=== PATIENT | female | born 1995 | race African-American/Black ===

== ENCOUNTER 2017-10-20 19:08 | Emergency (ER) | payer SELFPAY ==
[2017-10-20] MEDS ORDERED: POLYMYXIN B SULFATE/TMP OPH SOLN (10 ML/ER DISP) OD PRN (19:51)
[2017-10-20] MEDS ORDERED: ALBUTEROL SULFATE 0.083% NEB 2.5 MG/3 ML AMPUL NEB ONE (19:51)
--- NOTE | 2017-10-20 19:52 | ER Document Report ---
HPI - HPI Patient complains to provider of: Cough Pain Level: 5 Context: Patient is a 22-year-old female presents emergency department complaining of nonproductive cough, rhinorrhea for 1 week. She denies any productive cough, fever, chills, shortness of breath, dyspnea on exertion. States that she has been taking DayQuil, NyQuil, Cepacol without any improvement. With associated sore throat due to frequent coughing. She also admits to right eye discharge and redness that started this morning. She denies wearing contact lenses. She did not receive a flu vaccine this year. Patient is a non-smoker and denies any history of lung disease - REPRODUCTIVE LMP: 10/19/17 Reproductive: DENIES: : Past Medical History - Social History Smoking Status: Never Smoker Family History: Reviewed & Not Pertinent Psychiatric Medical History: Reports: Hx Depression Past Surgical History: Reports: Hx Appendectomy - Immunizations Hx Diphtheria, Pertussis, Tetanus Vaccination: Yes Vertical Provider Document - CONSTITUTIONAL Agree With Documented VS: Yes Notes: PHYSICAL EXAM GENERAL: Alert, interacts well. HEAD: Normocephalic, atraumatic. EYES: Pupils equal, round, and reactive to light. Extraocular movements intact. Conjunctival erythema with purulent drainage noted within the right eye without any periorbital edema ENT: Oral mucosa moist, tongue midline. NECK: Full range of motion. Supple. Trachea midline. LUNGS: Clear to auscultation bilaterally, no wheezes, rales, or rhonchi. No respiratory distress. HEART: Regular rate and rhythm. No murmurs, gallops, or rubs. EXTREMITIES: Moves all 4 extremities spontaneously. No edema, radial and dorsalis pedis pulses 2/4 bilaterally. No cyanosis. NEUROLOGICAL: Alert and oriented x4. Normal speech. PSYCH: Normal affect, normal mood. SKIN: Warm, dry, normal turgor. No rashes or lesions noted. - INFECTION CONTROL TRAVEL OUTSIDE OF THE [place] IN LAST 30 DAYS: No - RESPIRATORY O2 Sat by Pulse Oximetry: 98 Course - Re-evaluation Re-evalutation: 10/21/17 01:23 Patient is a 22-year-old female who is hemodynamically stable, no acute distress and afebrile. Presentation is consistent with viral bronchitis without wheezing. Patient states that she felt better after nebulizer treatment. Chest x-ray without evidence of infiltrate or concern for pneumonia. Low clinical suspicion for any acute sinusitis, strep pharyngitis, retropharyngeal or peritonsillar abscess. Patient tolerating p.o. without any difficulty. And vital signs are stable. Regarding her eye, consistent with a bacterial conjunctivitis. Will discharge home on topical Polytrim with instruction to follow-up with primary care. Patient will be also discharged home on p.o. steroids for bronchitis. Patient given strict return precautions and stable for discharge - Vital Signs Vital signs: Temp Pulse Resp BP Pulse Ox 98.8 F 82 20 151/78 H 98 10/20/17 19:13 10/20/17 19:13 10/20/17 19:13 10/20/17 19:13 10/20/17 19:13 - Diagnostic Test Radiology reviewed: Image reviewed, Reports reviewed Discharge - Discharge Clinical Impression: Bronchitis, Pre-hypertension Conjunctivitis Qualifiers: Conjunctivitis type: acute Acute conjunctivitis type: bacterial Laterality: right Qualified Code(s): H10.31 - Unspecified acute conjunctivitis, right eye Condition: Good Disposition: HOME, SELF-CARE Instructions: Conjunctivitis ([facility]) Additional Instructions: BRONCHITIS: You have acute bronchitis. This disease is an infection or inflammation of the air passageways in your lungs. Symptoms usually include cough, low grade fever, shortness of breath, and wheezing. The cough usually persists for a couple of weeks. Most cases of bronchitis get better without antibiotics. We prescribe antibiotics when we believe bacteria are damaging your airways, or if there's high risk the bronchitis will worsen into pneumonia. Increase your fluid intake. A cool mist humidifier may make your lungs more comfortable. An expectorant (cough medicine that loosens phlegm) can help. If you smoke, STOP!!! Recovery from bronchitis can be somewhat slow, but you should see improvement within a day or two. Repeated episodes of bronchitis may result in lung damage -- for example, chronic bronchitis, recurrent pneumonias, or emphysema. Call the doctor if you develop increasing fever, shortness of breath, chest pain, bloody sputum, or otherwise worsen. If you have not improved at all after several days, contact the physician. DECONGESTANT MEDICATION: A decongestant medicine has been prescribed. Often this medicine is combined in the same tablet with an antihistamine or expectorant. This type of medicine is helpful in treating a bad cold or sinus condition, as well as in treatment of the nasal congestion of hay fever. It is not of much benefit for lung infections. Decongestant medicines are related to stimulants. They can cause an increase in blood pressure and heart rate. Persons with heart disease and high blood pressure should not take decongestants without discussing this with the physician. If you develop palpitations, chest pain, headache, or tremors, stop the medicine and consult your physician. COUGH-SUPPRESSANT & EXPECTORANT MEDICATION: You are to use a cough medication as needed for relief of symptoms. This medicine is a combination of an expectorant (to make the mucous thinner and more easily "coughed up") and a cough suppressant (to reduce the frequency of coughing). The cough-suppressant medicine is related to narcotics. You may experience mild nausea and sleepiness. Some patients who are very sensitive to narcotics may have stomach pain from this medicine. Taking the medicine with food reduces these side effects. Do not drive or work with machinery until you know how this medicine affects you. The expectorant should have no side effects. Iodine-containing expectorants (such as organidin) should not be taken by persons with active thyroid disease unless approved by your doctor. Call the doctor if you develop shortness of breath, hives, rash, itching, lightheadedness, or severe nausea and vomiting. INHALED BRONCHODILATORS: You have received a treatment of and/or prescription for an inhaled bronchodilator -- a medication which stimulates the airways in the lung to dilate. This improves the flow of air in asthma, bronchitis, and emphysema. These medicines have some similarity to adrenaline, and can cause similar side effects: shakiness, racing heart, and a sense of nervousness. These side effects decrease with time. Contact your doctor if these side effects are severe. Do not over-use the medicine. Too-frequent use of the inhaler may make it ineffective. Call your doctor if the inhaler is not controlling your symptoms at the prescribed doses. STEROID MEDICATION: You have been given an injection of or oral medicine of the cortisone/ steroid class. This medication is used to control inflammation or allergy. Jaspreet t is usually only given for a short period of time, until the acute process subsides. There are usually no side effects from short-term use of cortisone-like medications. Some persons feel an increased sense of well-being and are not sleepy at bedtime. Long-term use of cortisone medications is best avoided, unless required for a severe condition. If your condition does not remit, or relapses after the course of corticosteroid medication, you should consult your physician. USE OF ACETAMINOPHEN (Tylenol): Acetaminophen may be taken for pain relief or fever control. It's much safer than aspirin, offering a wider range of "safe" dosages. It is safe during . Some brand names are Tylenol, Panadol, Datril, Anacin 3, Tempra, and Liquiprin. Acetaminophen can be repeated every four hours. The following are maximum recommended dosages: >89 pounds or adults 650 mg to 900 mg Acetaminophen can be repeated every four hours. Maximum dose not to exceed 4000 mg a day. FOLLOW-UP CARE: If you have been referred to a physician for follow-up care, call the physician s office for an appointment as you were instructed or within the next two days. If you experience worsening or a significant change in your symptoms, notify the physician immediately or return to the Emergency Department at any time for re-evaluation. Prescriptions: Benzonatate [Tessalon Perles 100 mg Capsule] 100 mg PO Q8HP PRN #40 capsule PRN Reason: Albuterol Sulfate [Proair HFA Inhalation Aerosol 8.5 gm MDI] 1 puff IH Q4 PRN # 1 mdi PRN Reason: Prednisone [Sterapred] 5 mg PO ASDIR PRN 6 Days #1 tab.ds.pk PRN Reason: Forms: Elevated Blood Pressure, Return to Work Referrals: [facility] [Provider Group] - Follow up in 1 week
[2017-10-20] MEDS ORDERED: PREDNISONE 20 MG TABLET PO ONE (20:01)
--- NOTE | 2017-10-20 20:46 | RADIOLOGY REPORT (SQ) ---
EXAM DESCRIPTION: CHEST PA/LAT COMPLETED DATE/TIME: 10/20/2017 8:29 pm REASON FOR STUDY: nonproductive cough COMPARISON: None. EXAM PARAMETERS: NUMBER OF VIEWS: two views TECHNIQUE: Digital Frontal and Lateral radiographic views of the chest acquired. RADIATION DOSE: NA LIMITATIONS: none FINDINGS: LUNGS AND PLEURA: No opacities, masses or pneumothorax. No pleural effusion. MEDIASTINUM AND HILAR STRUCTURES: No masses or contour abnormalities. HEART AND VASCULAR STRUCTURES: Heart normal size. No evidence for failure. BONES: No acute findings. HARDWARE: None in the chest. OTHER: No other significant finding. IMPRESSION: NO SIGNIFICANT RADIOGRAPHIC FINDING IN THE CHEST. TECHNICAL DOCUMENTATION: JOB ID: [id number] [employer]- All Rights Reserved Reading location - IP/workstation name: [email or web address]
[2017-10-20] MEDS ORDERED: BENZONATATE 100 MG CAPSULE PO ONE (21:07)
[2017-10-20 21:35] VITALS: BP 126/57
== END 2017-10-20 21:35 | disposition home or self-care (01) ==
LOC: ER 19:08
DX: J40 Bronchitis, not specified as acute or chronic (principal); H10.31 Unspecified acute conjunctivitis, right eye; R05 Cough; J34.89 Other specified disorders of nose and nasal sinuses; J02.9 Acute pharyngitis, unspecified; R03.0 Elevated blood-pressure reading, without diagnosis of hypertension
CPT/HCPCS: 94640; 99283; 71046; J3490; J7512

== ENCOUNTER 2018-01-28 21:11 | Emergency (ER) | payer SELFPAY ==
[2018-01-28] MEDS ORDERED: ONDANSETRON 4 MG TAB.RAPDIS PO ONE (23:28)
--- NOTE | 2018-01-28 23:28 | ER Document Report ---
ED General - General Chief Complaint: Sore Throat Stated Complaint: SORE THROAT Time Seen by Provider: 01/28/18 22:31 Mode of Arrival: Ambulatory Information source: Patient Notes: 22 yo female with multiple complaints for several days but has worked every day. Vomiting, sore throat, dizzy. No chest pain or abd. pain. No fever. No dysuria. No vaginal discharge. TRAVEL OUTSIDE OF THE [place] IN LAST 30 DAYS: No - HPI Onset: Other - several days - Related Data Allergies/Adverse Reactions: No Known Allergies Allergy (Verified 01/28/18 21:13) Past Medical History - General Information source: Patient - Social History Smoking Status: Current Every Day Smoker Frequency of alcohol use: None Drug Abuse: None Lives with: Family Family History: Reviewed & Not Pertinent Patient has suicidal ideation: No Patient has homicidal ideation: No - Medical History Medical History: Negative Renal/ Medical History: Denies: Hx Peritoneal Dialysis Psychiatric Medical History: Reports: Hx Depression Past Surgical History: Reports: Hx Appendectomy - Immunizations Hx Diphtheria, Pertussis, Tetanus Vaccination: Yes Review of Systems - Review of Systems Constitutional: See HPI EENT: See HPI Cardiovascular: No symptoms reported Respiratory: No symptoms reported Gastrointestinal: See HPI Genitourinary: No symptoms reported Female Genitourinary: No symptoms reported Musculoskeletal: No symptoms reported Skin: No symptoms reported Hematologic/Lymphatic: No symptoms reported Neurological/Psychological: No symptoms reported Physical Exam - Vital signs Vitals: Temp Pulse Resp BP Pulse Ox 100.0 F 80 18 135/76 H 98 01/28/18 21:20 01/28/18 21:20 01/28/18 21:20 01/28/18 21:20 01/28/18 21:20 Interpretation: Normal - General General appearance: Appears well, Alert - HEENT Head: Normocephalic, Atraumatic Eyes: Normal Conjunctiva: Normal Pupils: PERRL Mucous membranes: Normal Pharynx: Normal Neck: Supple. No: Lymphadenopathy - Respiratory Respiratory status: No respiratory distress Chest status: Nontender Breath sounds: Normal Chest palpation: Normal - Cardiovascular Rhythm: Regular Heart sounds: Normal auscultation Murmur: No - Abdominal Inspection: Normal Distension: No distension Bowel sounds: Normal Tenderness: Nontender Organomegaly: No organomegaly - Back Back: Normal, Nontender - Extremities General upper extremity: Normal inspection, Nontender, Normal color, Normal ROM , Normal temperature General lower extremity: Normal inspection, Nontender, Normal color, Normal ROM , Normal temperature, Normal weight bearing. No: Tk's sign - Neurological Neuro grossly intact: Yes Cognition: Normal Orientation: AAOx4 [place] Coma Scale Eye Opening: Spontaneous [place] Coma Scale Verbal: Oriented Carmen Coma Scale Motor: Obeys Commands [place] Coma Scale Total: 15 Speech: Normal Motor strength normal: LUE, RUE, LLE, RLE Sensory: Normal - Psychological Associated symptoms: Normal affect, Normal mood - Skin Skin Temperature: Warm Skin Moisture: Dry Skin Color: Normal Skin irregularity: negative: Rash Course - Re-evaluation Re-evalutation: 01/29/18 01:11 Urinalysis is negative for infection and it is dilute 1.009. test is negative. Patient has not vomited while in the emergency room. - Vital Signs Vital signs: Temp Pulse Resp BP Pulse Ox 99.1 F 74 16 129/80 H 98 01/29/18 01:00 01/29/18 01:00 01/29/18 01:00 01/29/18 01:00 01/29/18 01:00 - Laboratory Laboratory results interpreted by me: 01/28/18 23:52 Urine Ascorbic Acid 20 H Discharge - Discharge Clinical Impression: Sore throat, Dizziness, Myalgia Vomiting Qualifiers: Vomiting type: unspecified Vomiting Intractability: non-intractable Nausea presence: with nausea Qualified Code(s): R11.2 - Nausea with vomiting, unspecified Condition: Good Disposition: HOME, SELF-CARE Instructions: Myalagia (Muscle Pain) ([facility]), Sore Throat ([facility]), Vomiting ([facility]) Additional Instructions: rest fluids Tylenol Motrin No work for several days Return to the emergency room if symptoms worsen Forms: Return to Work
[2018-01-29 00:33] LABS: APPEARANCE,URINE SLIGHTLY-CLOUDY; BILIRUBIN,URINE NEGATIVE (NEGATIVE); COLOR,URINE STRAW; GLUCOSE, URINE NEGATIVE (NEGATIVE); KETONES,URINE NEGATIVE (NEGATIVE); LEUKOCYTE ESTERASE,URINE NEGATIVE (NEGATIVE); NITRITE,URINE NEGATIVE (NEGATIVE); PROTEIN,URINE NEGATIVE (NEGATIVE); URINE SPECIFIC GRAVITY 1.009; UROBILINOGEN,URINE NEGATIVE mg/dL (<2.0)
[2018-01-29] MEDS ORDERED: IBUPROFEN 800 MG TABLET PO ONE (00:55)
[2018-01-29 01:54] VITALS: BP 129/80
== END 2018-01-29 01:20 | disposition home or self-care (01) ==
LOC: ER 21:11
DX: J02.9 Acute pharyngitis, unspecified (principal); R42 Dizziness and giddiness; M79.1 Myalgia; R11.2 Nausea with vomiting, unspecified; F17.200 Nicotine dependence, unspecified, uncomplicated
CPT/HCPCS: 99283; 87070; 87086; 87880; 81025; 81001; S0119

== ENCOUNTER 2018-02-14 11:53 | Emergency (ER) | payer SELFPAY ==
[2018-02-14 12:04] VITALS: BP 133/55
[2018-02-14] MEDS ORDERED: ONDANSETRON 4 MG TAB.RAPDIS PO ONE (12:28)
--- NOTE | 2018-02-14 12:33 | ER Document Report ---
ED General - General Chief Complaint: Epigastric Pain Stated Complaint: STOMACH PAIN/VOMITING Time Seen by Provider: 02/14/18 12:23 Notes: 22-year-old female here with complaints of nausea vomiting diarrhea epigastric abdominal pain ongoing for the past few days. She has not tried anything for the symptoms other than [id number] remedies such as Pepto-Bismol with minimal relief. She does not know of any known sick contacts with similar symptoms. Her abdominal pain is described as cramping and is intermittent. She also complains of some right-sided chest pain that started earlier today while she was at work. The pain is worse with movement and torso twisting as well as arm movement. She does not have any shortness of breath lightheadedness diaphoresis. TRAVEL OUTSIDE OF THE [place] IN LAST 30 DAYS: No - Related Data Allergies/Adverse Reactions: No Known Allergies Allergy (Verified 02/14/18 12:22) Past Medical History - Social History Smoking Status: Never Smoker Chew tobacco use (# tins/day): No Frequency of alcohol use: Occasional Drug Abuse: None Family History: Reviewed & Not Pertinent Patient has suicidal ideation: No Patient has homicidal ideation: No Renal/ Medical History: Denies: Hx Peritoneal Dialysis Psychiatric Medical History: Reports: Hx Depression Past Surgical History: Reports: Hx Appendectomy - Immunizations Hx Diphtheria, Pertussis, Tetanus Vaccination: Yes Review of Systems - Review of Systems Notes: See history of present illness for pertinent positive review of systems; otherwise all review of systems have been reviewed and are negative Physical Exam - Vital signs Vitals: Temp Pulse Resp BP Pulse Ox 98.8 F 68 16 133/55 H 99 02/14/18 12:03 02/14/18 12:03 02/14/18 12:03 02/14/18 12:03 02/14/18 12:03 - Notes Notes: PHYSICAL EXAMINATION: GENERAL: Well-appearing and in no acute distress. HEAD: Atraumatic, normocephalic. EYES: Pupils equal round and reactive to light, extraocular movements intact, sclera anicteric, conjunctiva are normal. ENT: nares patent, oropharynx clear without exudates. Moist mucous membranes. NECK: Normal range of motion, supple without lymphadenopathy LUNGS: CTAB and equal. No wheezes rales or rhonchi. HEART: Regular rate and rhythm without murmurs. Moderate right chest wall tenderness (patient states this is the exact pain she was having earlier) ABDOMEN: Soft, no tenderness. No facial grimacing/wincing upon palpation. No guarding, no rebound. EXTREMITIES: Normal range of motion, no pitting edema. No cyanosis. NEUROLOGICAL: Cranial nerves grossly intact. Normal sensory/motor exams. PSYCH: Normal mood, normal affect. SKIN: Warm, Dry, normal turgor, no rashes or lesions noted Course - Re-evaluation Re-evalutation: 02/14/18 12:36 MEDICAL DECISION MAKING: Concern for chest wall pain and viral gastroenteritis I have low clinical suspicion, given history/exam, for acute emergency condition Will give Zofran and prescription Phenergan suppository oral Zofran Instructed follow-up PCP next day or few Patient understands and agrees to the plan of care EKG my interpretation rate nl rhythm reg No appreciable ST elevation or depression Normal [place] QRS QT No sig change from prior EKG from 03/04/15 - Vital Signs Vital signs: Temp Pulse Resp BP Pulse Ox 98.8 F 68 16 133/55 H 99 02/14/18 12:03 02/14/18 12:03 02/14/18 12:03 02/14/18 12:03 02/14/18 12:03 Discharge - Discharge Clinical Impression: Nausea vomiting and diarrhea Condition: Good Disposition: HOME, SELF-CARE Additional Instructions: You were seen in the emergency department at [facility]. For vomiting/nausea use Zofran FIRST, if it does not work THEN use the Phenergan suppositories. If you were given any sedating medications, such as Phenergan suppositories, be sure not to operate heavy machinery (example - driving) and be sure you are not too sedated to walk appropriately. Use Motrin/Tylenol for the chest wall pain. Please followup with your primary physician in the next few days for further management/evaluation. Please return to the emergency department for worsening of symptoms or any symptom that you deem to be concerning or life-threatening. Thank you for allowing us to be part of your care. This documentation serves as your work/school note for your ED visit today. Prescriptions: Ondansetron [Zofran Odt 4 mg Tablet] 1 tab PO Q4H PRN #15 tab.rapdis PRN Reason: For Nausea/Vomiting Promethazine HCl [Phenergan] 12.5 mg RC BIDP PRN #7 supp.rect PRN Reason:
--- NOTE | 2018-02-15 00:26 | EKG REPORT ---
SEVERITY:- NORMAL ECG - SINUS RHYTHM : Confirmed by: Geena Wild MD 15-Feb-2018 00:25:02
== END 2018-02-14 12:42 | disposition home or self-care (01) ==
LOC: ER 11:53
DX: R11.2 Nausea with vomiting, unspecified (principal); R19.7 Diarrhea, unspecified; R10.13 Epigastric pain; R07.89 Other chest pain; Z90.49 Acquired absence of other specified parts of digestive tract
CPT/HCPCS: 93005; 99284; 93010; S0119

== ENCOUNTER 2018-03-15 14:13 | Emergency (ER) | payer OTHER ==
--- NOTE | 2018-03-15 14:49 | ER Document Report ---
ED Medical Screen (RME) - General Chief Complaint: Abdominal Pain Stated Complaint: PAIN IN STOMACH/CHEST Time Seen by Provider: 03/15/18 14:46 Notes: 22 years old female presents today with diffuse abdominal pain starting with lower abdomen today had epigastric pain. Around 12:00 vomited once. Which is yellow in color. States that she is having regular bowel movements daily. Her last. Was in January 23. Denies any dysuria frequency urgency. Denies any fever chills or other constitutional symptoms. TRAVEL OUTSIDE OF THE [place] IN LAST 30 DAYS: No - Related Data Allergies/Adverse Reactions: No Known Allergies Allergy (Verified 03/15/18 14:37) Past Medical History Renal/ Medical History: Denies: Hx Peritoneal Dialysis Psychiatric Medical History: Reports: Hx Depression Past Surgical History: Reports: Hx Appendectomy - Immunizations Hx Diphtheria, Pertussis, Tetanus Vaccination: Yes Physical Exam - Vital signs Vitals: Temp Pulse Resp BP Pulse Ox 97.4 F 71 16 140/64 H 99 03/15/18 14:18 03/15/18 14:18 03/15/18 14:18 03/15/18 14:18 03/15/18 14:18 Course - Vital Signs Vital signs: Temp Pulse Resp BP Pulse Ox 97.4 F 71 16 140/64 H 99 03/15/18 14:18 03/15/18 14:18 03/15/18 14:18 03/15/18 14:18 03/15/18 14:18
[2018-03-15 15:20] LABS: ABSOLUTE EOSINOPHILS # (AUTO) 0.1 10^3/uL (0.0-0.6); ABSOLUTE MONOCYTES (AUTO) 0.8 10^3/uL (0.1-1.4); ABSOLUTE NEUT (AUTO) 2.8 10^3/uL (1.7-8.2); BASOPHILS % (AUTO) 0.8 % (0-2); EOSINOPHILS % (AUTO) 1.2 % (0-6); HEMATOCRIT 29.4 % (36.0-47.0); HEMOGLOBIN 9.1 g/dL (12.0-15.5); LYMPHOCYTES % (AUTO) 34.7 % (13-45); MEAN CORPUSCULAR VOLUME 68 fl (80-97); MONOCYTES % (AUTO) 14.7 % (3-13); PLATELET COUNT 336 10^3/uL (150-450); RED BLOOD COUNT 4.34 10^6/uL (3.72-5.28); RED CELL DISTRIBUTION WIDTH 19.7 % (11.5-14.0); SEGMENTED NEUTROPHILS % (AUTO) 48.6 % (42-78); TOTAL CELLS COUNTED % (AUTO) 100 %; WHITE BLOOD COUNT 5.7 10^3/uL (4.0-10.5)
[2018-03-15 15:29] LABS: AMORPHOUS SEDIMENT,URINE TRACE /HPF; APPEARANCE,URINE SLIGHTLY-CLOUDY; BILIRUBIN,URINE NEGATIVE (NEGATIVE); COLOR,URINE YELLOW; GLUCOSE, URINE NEGATIVE (NEGATIVE); KETONES,URINE NEGATIVE (NEGATIVE); LEUKOCYTE ESTERASE,URINE TRACE (NEGATIVE); NITRITE,URINE NEGATIVE (NEGATIVE); PROTEIN,URINE NEGATIVE (NEGATIVE); URINE SPECIFIC GRAVITY 1.027; UROBILINOGEN,URINE NEGATIVE mg/dL (<2.0)
--- NOTE | 2018-03-15 15:31 | ER Document Report ---
ED GI/ - General Chief Complaint: Abdominal Pain Stated Complaint: PAIN IN STOMACH/CHEST Time Seen by Provider: 03/15/18 14:46 Mode of Arrival: Ambulatory Information source: Patient TRAVEL OUTSIDE OF THE [place] IN LAST 30 DAYS: No - HPI Patient complains to provider of: Abdominal pain Onset: Last week Timing/Duration: Gradual, Constant, Waxing and waning Quality of pain: Dull - MOSTLY, Sharp - SOMETIMES Severity at maximum: Moderate Severity in ED: Mild Context: denies: Bad food, Lifting, Out of the country travel, , Recent trauma, Other Location: Epigastric, LUQ, RUQ, Suprapubic Vaginal bleeding (Compared to normal period): None Menstrual period history: Missed Sexual history: Active Associated symptoms: Nausea, Vomiting. denies: Blood in emesis, Blood in stool , Chills, Constipation, Diarrhea, Dysuria, Fever, Hurts to breath, Shortness of breath Exacerbated by: Denies Relieved by: Denies Similar symptoms previously: No Recently seen / treated by doctor: Yes - [facility] 3 DAYS AGO - Related Data Allergies/Adverse Reactions: No Known Allergies Allergy (Verified 03/15/18 14:37) Past Medical History - General Information source: Patient - Social History Smoking Status: Never Smoker Chew tobacco use (# tins/day): No Frequency of alcohol use: None Drug Abuse: None Lives with: Family Family History: Reviewed & Not Pertinent Patient has suicidal ideation: No Patient has homicidal ideation: No - Past Medical History Cardiac Medical History: Reports: None Pulmonary Medical History: Reports: Hx Bronchitis Neurological Medical History: Reports: None Endocrine Medical History: Reports: None Renal/ Medical History: Reports: None. Denies: Hx Peritoneal Dialysis Malignancy Medical History: Reports: None GI Medical History: Reports: None Musculoskeletal Medical History: Reports None Psychiatric Medical History: Reports: Hx Depression Past Surgical History: Reports: Hx Appendectomy - Immunizations Hx Diphtheria, Pertussis, Tetanus Vaccination: Yes Review of Systems - Review of Systems Constitutional: No symptoms reported EENT: No symptoms reported Cardiovascular: No symptoms reported Respiratory: No symptoms reported Gastrointestinal: See HPI Genitourinary: No symptoms reported Female Genitourinary: See HPI Musculoskeletal: No symptoms reported Skin: No symptoms reported Neurological/Psychological: No symptoms reported Physical Exam - Vital signs Vitals: Temp Pulse Resp BP Pulse Ox 97.4 F 71 16 140/64 H 99 03/15/18 14:18 03/15/18 14:18 03/15/18 14:18 03/15/18 14:18 03/15/18 14:18 Interpretation: Hypertensive. No: Tachycardic, Tachypneic, Febrile - General General appearance: Appears well, Alert In distress: None - HEENT Head: Normocephalic Eyes: Normal Conjunctiva: Normal Ears: Normal Nasal: Normal Mouth/Lips: Normal Mucous membranes: Normal - Respiratory Respiratory status: No respiratory distress - Cardiovascular Rhythm: Regular - Abdominal Inspection: Normal Distension: No distension Bowel sounds: Hypoactive Tenderness: Tender - MILD, EG & SP & RUQ & LUQ - Back Back: Normal, Nontender. No: CVA tenderness - Extremities General upper extremity: Normal inspection General lower extremity: Normal inspection - Neurological Neuro grossly intact: Yes Cognition: Normal Orientation: AAOx4 - Psychological Associated symptoms: Normal affect, Normal mood - Skin Skin Temperature: Warm Skin Moisture: Dry Skin Color: Normal Skin Turgor: Elastic Course - Vital Signs Vital signs: Temp Pulse Resp BP Pulse Ox 98.6 F 59 L 20 125/70 100 03/15/18 18:08 03/15/18 18:08 03/15/18 18:08 03/15/18 18:08 03/15/18 18:08 - Laboratory Result Diagrams: 03/15/18 15:05 03/15/18 15:05 Laboratory results interpreted by me: 03/15/18 03/15/18 03/15/18 15:05 15:05 15:05 Hgb 9.1 L Hct 29.4 L MCV 68 L MCH 21.0 L MCHC 31.0 L RDW 19.7 H Monocytes % 14.7 H Sodium 146.8 H Chloride 109 H Glucose 74 L Total Bilirubin 0.1 L Ur Leukocyte Esterase TRACE H Discharge - Discharge Clinical Impression: Abdominal pain Qualifiers: Abdominal location: generalized Qualified Code(s): R10.84 - Generalized abdominal pain Condition: Stable Disposition: HOME, SELF-CARE Instructions: Abdominal Pain ([facility]), Antispasmodics ([facility]) Additional Instructions: DRINK PLENTY OF WATER. YOU SHOULD DRINK AT LEAST 2 QUARTS OF WATER IN A 24- HOUR PERIOD. TAKE A PROBIOTIC SUPPLEMENT (ALIGN OR OTHER BRAND NAME) DIRECTED. YOU MAY TAKE BENTYL DIRECTED IF NEEDED FOR RELIEF OF CRAMPING. FOLLOW UP WITH YOUR PRIMARY CARE PROVIDER OR WITH [facility] IF NOT IMPROVED IN 5-7 DAYS. RETURN TO E.R. IF YOU GET WORSE, ANY TIME. Prescriptions: Dicyclomine HCl [Bentyl 10 mg Capsule] 10 mg PO Q6HP PRN #20 capsule PRN Reason: Abdominal Cramping Referrals: DONTE ACEVES MD [ACTIVE STAFF] - Follow up as needed ANNABEL HARO MD [ACTIVE STAFF] - Follow up as needed
[2018-03-15 15:39] LABS: ALANINE AMINOTRANSFERASE 22 U/L (9-52); ALBUMIN 3.9 g/dL (3.5-5.0); ALKALINE PHOSPHATASE 58 U/L (38-126); ANION GAP 13 (5-19); ASPARTATE AMINO TRANSFERASE 20 U/L (14-36); BLOOD UREA NITROGEN 13 mg/dL (7-20); CALCIUM 9.2 mg/dL (8.4-10.2); CARBON DIOXIDE 25 mmol/L (22-30); CHLORIDE 109 mmol/L (98-107); GLUCOSE 74 mg/dL (75-110); LIPASE 68.6 U/L (23-300); POTASSIUM 3.9 mmol/L (3.6-5.0); SODIUM 146.8 mmol/L (137-145); TOTAL PROTEIN 7.8 g/dL (6.3-8.2)
[2018-03-15 15:46] LABS: BILIRUBIN,DIRECT 0.1 mg/dL (0.0-0.4); BILIRUBIN,TOTAL 0.1 mg/dL (0.2-1.3)
--- NOTE | 2018-03-15 18:21 | RADIOLOGY REPORT (SQ) ---
EXAM DESCRIPTION: ACUTE ABDOMEN SERIES COMPLETED DATE/TIME: 03/15/2018 6:02 pm REASON FOR STUDY: ABD. PAIN COMPARISON: None. NUMBER OF VIEWS: Three views. TECHNIQUE: Frontal chest, supine abdomen and upright/decubitus abdomen radiographic images acquired. LIMITATIONS: None. FINDINGS: CHEST: Lungs clear of infiltrates. FREE AIR: None. No abnormal gas collections. BOWEL GAS PATTERN: Nonobstructive pattern. No dilated loops or air fluid levels. CALCIFICATIONS: No suspicious calcifications. HARDWARE: Metallic density structures projecting over the right and left mid abdomen are favored to r epresent items external to the patient. SOFT TISSUES: No gross mass or suggestion of organomegaly. BONES: No acute fracture. No worrisome bone lesions. OTHER: No other significant finding. IMPRESSION: NO RADIOGRAPHIC EVIDENCE FOR ACUTE ABDOMINAL DISEASE. TECHNICAL DOCUMENTATION: JOB ID: [id number] [employer]- All Rights Reserved Reading location - IP/workstation name: [email or web address]
[2018-03-15 19:27] VITALS: BP 128/63
== END 2018-03-15 19:26 | disposition home or self-care (01) ==
LOC: ER 14:13
DX: R10.84 Generalized abdominal pain (principal); R11.2 Nausea with vomiting, unspecified; Z90.49 Acquired absence of other specified parts of digestive tract
CPT/HCPCS: 36415; 74022; 80053; 81001; 81025; 83690; 85025; 99284

== ENCOUNTER 2018-05-31 13:31 | Emergency (ER) | payer OTHER ==
[2018-05-31] MEDS ORDERED: LORAZEPAM 1 MG TABLET PO ONE (14:33)
--- NOTE | 2018-05-31 14:39 | ER Document Report ---
HPI - HPI Pain Level: Denies Notes: Patient is a 23-year-old female with a history of anxiety and depression previously who presents to the ED with nonspecific symptoms, but complaining of intermittent hyperventilating with feeling of "someone choking me." Patient states that she currently feels well with no pain or recent illness. She denies any drug allergies. Patient states that she is eating and drinking without any difficulties. She is urinating normally and having normal bowel movements. Patient states that her last menstrual period was 2 days ago and denies . She denies any drug use. Patient states that her symptoms start with no precipitating event. She had no recent life event to note. Patient was evaluated by [facility] emergency department twice yesterday for the same complaint. Her initial workup she had an elevated d-dimer at 0.59 with a negative CTA. They diagnosed hyperventilation/anxiety at that time. Patient return thereafter and had an unremarkable workup and was placed on Ativan which did seem to help. I did speak verbally with Dr. Reeves at [facility] about this patient who saw her the first visit. Denies drug allergies. Denies any headache, fever, head injury, neck pain, changes in vision/speech/mentation/ hearing, URI, sore throat, chest pain, palpitations, syncope, cough, shortness of breath, wheeze, dyspnea, abdominal pain, nausea/vomiting/diarrhea, urinary retention, dysuria, hematuria, loss of control of bowel or bladder, numbness/ tingling, saddle anesthesia, muscle paralysis/weakness, or rash. - ROS Systems Reviewed and Negative: Yes All other systems reviewed and negative - REPRODUCTIVE Reproductive: DENIES: : Past Medical History - Social History Smoking Status: Unknown if Ever Smoked Family History: Reviewed & Not Pertinent Pulmonary Medical History: Reports: Hx Bronchitis Renal/ Medical History: Denies: Hx Peritoneal Dialysis Psychiatric Medical History: Reports: Hx Depression Past Surgical History: Reports: Hx Appendectomy - Immunizations Hx Diphtheria, Pertussis, Tetanus Vaccination: Yes Vertical Provider Document - CONSTITUTIONAL Agree With Documented VS: Yes Notes: PHYSICAL EXAMINATION: GENERAL: Well-appearing, well-nourished and in no acute distress. A&Ox4. Answers questions appropriately. HEAD: Atraumatic, normocephalic. EYES: Pupils equal round and reactive to light, extraocular movements intact, sclera anicteric, conjunctiva are normal. ENT: Nares patent and without discharge. oropharynx clear without exudates. No tonsilar hypertrophy or erythema. Moist mucous membranes. No airway compromise or angioedema. NECK: Normal range of motion, supple without lymphadenopathy LUNGS: Breath sounds clear to auscultation bilaterally and equal. No wheezes rales or rhonchi. HEART: Regular rate and rhythm without murmurs, rubs, gallops. ABDOMEN: Soft, nontender, nondistended abdomen. No guarding, no rebound. No masses appreciated. Normal bowel sounds present. No CVA tenderness bilaterally. Musculoskeletal: FROM to passive/active. Strength 5+/5. Tk neg. No asymmetry to LE's. Extremities: No cyanosis, clubbing, or edema b/l. Peripheral pulses 2+. Capillary refill less than 3 seconds. NEUROLOGICAL: Normal speech, normal gait. PSYCH: Normal mood, normal affect. SKIN: Warm, Dry, normal turgor, no rashes or lesions noted. - INFECTION CONTROL TRAVEL OUTSIDE OF THE [place] IN LAST 30 DAYS: No Course - Re-evaluation Re-evalutation: 05/31/18 14:37 As reviewed in HPI, I did speak with Dr. Reeves from [facility] emergency department who performed a workup on this patient at her initial visit. She did have a mildly positive d-dimer at 0.59 with a negative CTA of the chest and negative chest x-ray. They diagnosed with hyperventilation syndrome and probable anxiety. She then returned later on in the evening for the same complaint and had another unremarkable workup performed. She was given Ativan which did not seem to help according to the second provider that saw her. At this time, patient does not have any significant tachycardia, tachypnea, or hypoxia. She is currently asymptomatic. Wells score of 0 and is also PERC negative. She has no obvious DVT risk factors. I will give her Ativan p.o. and obtain an EKG. Patient does not have any active chest pain, shortness breath, dyspnea on exertion. 05/31/18 14:50 I did review with Dr. Martinez and we will perform an EKG. Based on the workup performed yesterday as well as her current symptoms and risk factors, no further labs or imaging are warranted at this time as long as the EKG is unremarkable. Recommends consult with PCM for further evaluation and management otherwise. 05/31/18 15:23 Patient is an afebrile, well-hydrated, 23-year-old female who presents to the ED with nonspecific symptoms, possible anxiety/panic attacks. Vitals are acceptable without any significant tachycardia, tachypnea, or hypoxia. PE is otherwise unremarkable. Patient is currently asymptomatic. EKG was unremarkable for any acute pathology including any finding suggestive of right heart strain. As reviewed, no further labs or imaging warranted at this time. Patient has not had any recurrence or worsening symptoms. Low suspicion for any ACS, PE, pneumothorax, pericarditis, dissection, respiratory compromise, severe dehydration, sepsis, meningitis, or other systemic emergent condition at this time. Patient is aware that her condition can change from initial presentation and she needs to monitor symptoms closely and seek medical attention for any acute changes. I will send her home with a prescription for hydroxyzine. Recommend conservative measures for symptoms. Recheck with your PCM in 3-5 days. Return to the ED with any worsening/concerning symptoms otherwise as reviewed in discharge. Patient is in agreement. Pt sitting on her phone, barely wanting to make eye contact with me, and states that she is ready to go at discharge interview. She is in no apparent distress. - Vital Signs Vital signs: Temp Pulse Resp BP Pulse Ox 98.4 F 86 20 138/69 H 100 05/31/18 13:40 05/31/18 13:40 05/31/18 13:40 05/31/18 13:40 05/31/18 13:40 Discharge - Discharge Clinical Impression: Anxiousness, Hyperventilation Condition: Stable Disposition: HOME, SELF-CARE Instructions: Anxiety ([facility]) Additional Instructions: Maintain adequate fluid and food intake Healthy diet and exercise Take medications as directed Monitor blood pressure daily and keep a log Monitor symptoms for any acute changes Recheck with your PCM in 3-5 days Return to the ED with any worsening symptoms and/or development of fever, headache, chest pain, palpitations, syncope, shortness of breath, trouble breathing, abdominal pain, n/v/d, blood in stool/urine, loss of control of bowel /bladder, urinary retention, muscle weakness/paralysis, numbness/tingling, or other worsening symptoms that are concerning to you. Prescriptions: Hydroxyzine HCl 25 mg PO TID PRN #15 tablet PRN Reason: Forms: Elevated Blood Pressure Referrals: [facility] [Provider Group] - Follow up as needed
[2018-05-31 15:36] VITALS: BP 144/84
--- NOTE | 2018-05-31 22:41 | EKG REPORT ---
SEVERITY:- NORMAL ECG - SINUS RHYTHM : Confirmed by: Geena Wild MD 31-May-2018 22:39:56
== END 2018-05-31 15:37 | disposition home or self-care (01) ==
LOC: ER 13:31
DX: F41.9 Anxiety disorder, unspecified (principal); F45.8 Other somatoform disorders
CPT/HCPCS: 93005; 93010; 99285

== ENCOUNTER 2018-06-16 15:32 | Emergency (ER) | payer OTHER ==
--- NOTE | 2018-06-16 16:06 | RADIOLOGY REPORT (SQ) ---
EXAM DESCRIPTION: SHOULDER LEFT 2 OR MORE VIEWS COMPLETED DATE/TIME: 06/16/2018 3:57 pm REASON FOR STUDY: FALL, PAIN COMPARISON: None. NUMBER OF VIEWS: Three views. TECHNIQUE: Internal rotation, external rotation, and Y view images acquired of the left shoulder. LIMITATIONS: None. FINDINGS: MINERALIZATION: Normal. BONES: No acute fracture or dislocation. No worrisome bone lesions. JOINTS: No dislocation. VISUALIZED LUNGS AND RIBS: No pneumothorax. No rib fracture. SOFT TISSUES: No radiopaque foreign body. OTHER: No other significant finding. IMPRESSION: NEGATIVE STUDY OF THE LEFT SHOULDER. NO RADIOGRAPHIC EVIDENCE OF ACUTE INJURY. TECHNICAL DOCUMENTATION: JOB ID: [id number] [employer]- All Rights Reserved Reading location - IP/workstation name: [email or web address]
[2018-06-16] MEDS ORDERED: METHOCARBAMOL 750 MG TABLET PO ONE (17:05)
[2018-06-16] MEDS ORDERED: IBUPROFEN 600 MG TABLET PO ONE (17:05)
--- NOTE | 2018-06-16 17:18 | ER Document Report ---
HPI - HPI Pain Level: 4 Notes: Patient is an otherwise healthy 23-year-old female who presents to the emergency department with left shoulder pain. Patient reports she fell 2 days ago landing on the left shoulder. She states the pain is on the anterior and medial portion of the shoulder. She reports that she has taken acetaminophen for the pain with minimal relief. - REPRODUCTIVE Reproductive: DENIES: : - MUSCULOSKELETAL Musculoskeletal: REPORTS: Extremity pain - lt shoulder pain Past Medical History - General Information source: Patient - Social History Smoking Status: Never Smoker Frequency of alcohol use: Rare Drug Abuse: None Family History: Reviewed & Not Pertinent Patient has suicidal ideation: No Patient has homicidal ideation: No Pulmonary Medical History: Reports: Hx Bronchitis Renal/ Medical History: Denies: Hx Peritoneal Dialysis Psychiatric Medical History: Reports: Hx Depression Past Surgical History: Reports: Hx Appendectomy - Immunizations Hx Diphtheria, Pertussis, Tetanus Vaccination: Yes Vertical Provider Document - CONSTITUTIONAL Notes: PHYSICAL EXAMINATION: GENERAL: Well-appearing, well-nourished and in no acute distress. HEAD: Atraumatic, normocephalic. EYES: Pupils equal round extraocular movements intact, conjunctiva are normal. ENT: Nares patent NECK: Normal range of motion LUNGS: No respiratory distress Musculoskeletal: Limited range of motion to left shoulder, no crepitus or deformity noted. Normal pulses, sensation and motor distal to injury. NEUROLOGICAL: Normal speech, normal gait. PSYCH: Normal mood, normal affect. SKIN: Warm, Dry, normal turgor, no rashes or lesions noted. - INFECTION CONTROL TRAVEL OUTSIDE OF THE [place] IN LAST 30 DAYS: No Course - Re-evaluation Re-evalutation: X-rays negative for any acute findings to include fracture or dislocation. Patient will be given sling for comfort, discussed icing, use of ibuprofen and shoulder exercises with patient. Patient verbalizes understanding of same. - Vital Signs Vital signs: Temp Pulse Resp BP Pulse Ox 98.5 F 88 18 141/69 H 98 06/16/18 15:46 06/16/18 15:46 06/16/18 15:46 06/16/18 15:46 06/16/18 15:46 Procedures - Immobilization Left arm Immobilizer type: Sling Discharge - Discharge Clinical Impression: Shoulder pain, left Condition: Stable Disposition: HOME, SELF-CARE Additional Instructions: Shoulder Injury You have injured your shoulder. This usually results from stretching or tearing of the tendons during trauma. Time and protection are required in order to heal properly. Many injuries are quite disabling, and should be taken seriously. Initial treatment includes cold packs and a sling to rest the shoulder. The physician has assessed the seriousness of your injury, and has outlined a treatment plan. Understand that this treatment may change, depending on how you progress. If a re-examination was recommended, it is important that you follow up as instructed. Some shoulder injuries (such as partial tear of the rotator cuff) are only suspected after you've failed to improve. Call us if there's severe pain, numbness, or loss of function. Exercise Program for the Shoulder Since the shoulder moves in so many directions, the joint attachment is weak. Muscles provide most of the stability to the shoulder. You must exercise your shoulder to prevent painful instability or stiffening. PASSIVE - These may be begun within a few days of the injury. While standing, lean forward, allowing the arm to hang down towards the floor. Move the arm in small circles while slowly twisting your chest towards and away from the hanging arm. Do this for one minute. ACTIVE - These may be performed when the doctor gives permission. Begin with the arms at the sides. Raise the arms forward (shoulder's width apart) until they reach shoulder level. Then slowly swing both arms back until they are aiming straight out away from each other. Then bring them forward again, and finally, lower them to your sides. Repeat 20 to 30 times. As you improve, put weights in your hands for the exercise. Start with one pound, and work up to 10 pounds. Never use more than is comfortable. Athletes may work up to 30 pounds. ICE & ELEVATION: Apply ice packs frequently against the painful area. Many different schedules are recommended, such as "20 minutes on, 20 minutes off" or "one hour ice, two hours rest." If you need to work, you may need to go longer between ice treatments. You should plan to have the area ice packed AT LEAST one- fourth of the time. The ice should be applied over the wrap, tape, or splint, or over a layer of cloth -- not directly against the skin. Some ice bags have a built-in cloth and can be put directly on the skin. Your injured part should be elevated as much as possible over the next 48 hours. Try to keep the injury above the level of the heart. Avoid use of the injured area. Elevation and rest will decrease the swelling. USE OF [id number] IBUPROFEN: Ibuprofen (Advil, Nuprin, Medipren, Motrin IB) is a medication for fever and pain control. In addition, it has anti- inflammatory effects which may be beneficial, especially in the treatment of injuries. It's best to take ibuprofen with food. Persons with ulcer disease or allergy to aspirin should notify their physician of this before taking ibuprofen. Ibuprofen can be given every four to six hours, for a total of four doses daily. Age Pain or fever dose Antiinflammatory dose 6-8 yr 200 mg (1 tab) 200 mg (1 tab) 9-11 yr 200 mg (1 tab) 200-400 mg (1-2 tab) 11-14 yr 200-400 mg (1-2 tab) 400 mg (2 tab) 15-adult 400 mg (2 tab) 600 mg (3 tab) FOLLOW-UP CARE: If you have been referred to a physician for follow-up care, call the physician s office for an appointment as you were instructed or within the next two days. If you experience worsening or a significant change in your symptoms, notify the physician immediately or return to the Emergency Department at any time for re-evaluation. The x-ray done of your shoulder today was normal. That means there are no fractures or dislocations located within the shoulder joint itself. If your pain persist you may want to consider following up with either your primary care provider or orthopedics. Use the shoulder exercises as outlined above. Ice the shoulder as outlined above. Take Motrin 600 mg every 6 hours. You may also use the muscle relaxer as prescribed. Prescriptions: Methocarbamol [Robaxin 750 mg Tablet] 750 mg PO Q4 #40 tablet Forms: Return to Work Referrals: LUISA HOOD MD [ACTIVE STAFF] - Follow up as needed
[2018-06-16 17:25] VITALS: BP 139/66
== END 2018-06-16 17:32 | disposition home or self-care (01) ==
LOC: ER 15:32
DX: M25.512 Pain in left shoulder (principal); W19.XXXA Unspecified fall, initial encounter
CPT/HCPCS: 99283; 73030; J3490

== ENCOUNTER 2018-06-23 10:42 | Emergency (ER) | payer OTHER ==
[2018-06-23] MEDS ORDERED: ONDANSETRON HCL INJ/PF 4 MG/2 ML SDV IV ONE (11:38)
--- NOTE | 2018-06-23 11:39 | ER Document Report ---
ED Medical Screen (RME) - General Chief Complaint: Abdominal Pain Stated Complaint: ABDOMINAL PAIN Time Seen by Provider: 06/23/18 11:37 Mode of Arrival: Ambulatory Information source: Patient Notes: 23-year-old female 0 presents to the emergency room with nausea vomiting and urinary frequency. Patient was usual state of health went to a constitution party yesterday and started to feel sick around 4 PM yesterday. She is states she has had multiple episodes of nausea with vomiting. She is not on any medicines and is not allergic to anything. Her surgical history includes appendicitis. She is sexually active and on no control. She denies fever. She denies diarrhea. TRAVEL OUTSIDE OF THE [place] IN LAST 30 DAYS: No - Related Data Allergies/Adverse Reactions: No Known Allergies Allergy (Verified 05/31/18 13:34) Past Medical History Pulmonary Medical History: Reports: Hx Bronchitis Renal/ Medical History: Denies: Hx Peritoneal Dialysis Psychiatric Medical History: Reports: Hx Depression Past Surgical History: Reports: Hx Appendectomy - Immunizations Hx Diphtheria, Pertussis, Tetanus Vaccination: Yes Physical Exam - Vital signs Vitals: Temp Pulse Resp BP Pulse Ox 97.8 F 83 16 138/64 H 100 06/23/18 10:55 06/23/18 10:55 06/23/18 10:55 06/23/18 10:55 06/23/18 10:55 Course - Vital Signs Vital signs: Temp Pulse Resp BP Pulse Ox 97.8 F 83 16 138/64 H 100 06/23/18 10:55 06/23/18 10:55 06/23/18 10:55 06/23/18 10:55 06/23/18 10:55
[2018-06-23] MEDS: NORMAL SALINE 1000 ML 1,000 ML IV PRN ×2 (11:53→14:24)
[2018-06-23 12:04] LABS: ABSOLUTE BASOPHILS # (AUTO) 0.1 10^3/uL (0.0-0.2); ABSOLUTE EOSINOPHILS # (AUTO) 0.2 10^3/uL (0.0-0.6); ABSOLUTE LYMPHOCYTES (AUTO) 1.7 10^3/uL (0.5-4.7); ABSOLUTE MONOCYTES (AUTO) 0.8 10^3/uL (0.1-1.4); ABSOLUTE NEUT (AUTO) 4.5 10^3/uL (1.7-8.2); BASOPHILS % (AUTO) 0.8 % (0-2); EOSINOPHILS % (AUTO) 2.5 % (0-6); HEMATOCRIT 32.8 % (36.0-47.0); HEMOGLOBIN 10.2 g/dL (12.0-15.5); MEAN CORPUSCULAR HEMOGLOBIN 21.7 pg (27.0-33.4); MEAN CORPUSCULAR HGB CONC 31.2 g/dL (32.0-36.0); MEAN CORPUSCULAR VOLUME 70 fl (80-97); MONOCYTES % (AUTO) 11.7 % (3-13); PLATELET COUNT 440 10^3/uL (150-450); RED BLOOD COUNT 4.72 10^6/uL (3.72-5.28); TOTAL CELLS COUNTED % (AUTO) 100 %; WHITE BLOOD COUNT 7.2 10^3/uL (4.0-10.5)
[2018-06-23 12:06] LABS: APPEARANCE,URINE SLIGHTLY-CLOUDY; BILIRUBIN,URINE NEGATIVE (NEGATIVE); COLOR,URINE YELLOW; GLUCOSE, URINE NEGATIVE (NEGATIVE); KETONES,URINE NEGATIVE (NEGATIVE); LEUKOCYTE ESTERASE,URINE NEGATIVE (NEGATIVE); NITRITE,URINE NEGATIVE (NEGATIVE); PROTEIN,URINE NEGATIVE (NEGATIVE); URINE SPECIFIC GRAVITY 1.017; UROBILINOGEN,URINE NEGATIVE mg/dL (<2.0)
[2018-06-23 12:50] LABS: ALANINE AMINOTRANSFERASE 18 U/L (9-52); ALKALINE PHOSPHATASE 73 U/L (38-126); ANION GAP 10 (5-19); ASPARTATE AMINO TRANSFERASE 17 U/L (14-36); BILIRUBIN,DIRECT 0.1 mg/dL (0.0-0.4); BILIRUBIN,TOTAL 0.3 mg/dL (0.2-1.3); BLOOD UREA NITROGEN 8 mg/dL (7-20); CALCIUM 9.4 mg/dL (8.4-10.2); CARBON DIOXIDE 26 mmol/L (22-30); CHLORIDE 106 mmol/L (98-107); GLUCOSE 95 mg/dL (75-110); LIPASE 55.5 U/L (23-300); POTASSIUM 3.9 mmol/L (3.6-5.0); SODIUM 141.9 mmol/L (137-145)
[2018-06-23] MEDS ORDERED: DIPHENHYDRAMINE HCL 50 MG/ML VIAL IV ONE (13:47)
[2018-06-23] MEDS ORDERED: METOCLOPRAMIDE HCL INJ/PF 10 MG/2 ML SDV IV ONE (13:48)
--- NOTE | 2018-06-23 16:11 | ER Document Report ---
ED GI/ - General Chief Complaint: Abdominal Pain Stated Complaint: ABDOMINAL PAIN Time Seen by Provider: 06/23/18 11:37 Mode of Arrival: Ambulatory Information source: Patient Notes: Patient presents complaining of nausea vomiting and urinary frequency. Patient also complains of lower abdominal pain that started yesterday. Patient does acknowledge that she took a positive home test recently. Patient denies any vaginal bleeding or discharge. TRAVEL OUTSIDE OF THE [place] IN LAST 30 DAYS: No - HPI Patient complains to provider of: Pelvic pain, , Vomiting Onset: Yesterday Timing/Duration: Gradual Quality of pain: Achy Pain Level: 2 Context: Location: Pelvis Vaginal bleeding (Compared to normal period): None Menstrual period history: Sexual history: Active Associated symptoms: denies: Urinary hesitancy, Urinary frequency, Urinary retention, Urinary urgency Exacerbated by: Denies Relieved by: Denies - Related Data Allergies/Adverse Reactions: No Known Allergies Allergy (Verified 05/31/18 13:34) Past Medical History - General Information source: Patient - Social History Smoking Status: Never Smoker Frequency of alcohol use: Occasional Drug Abuse: None Occupation: [employer] Lives with: Family Family History: Reviewed & Not Pertinent Patient has suicidal ideation: No Patient has homicidal ideation: No Pulmonary Medical History: Reports: Hx Bronchitis Renal/ Medical History: Denies: Hx Peritoneal Dialysis Psychiatric Medical History: Reports: Hx Depression Past Surgical History: Reports: Hx Appendectomy - Immunizations Hx Diphtheria, Pertussis, Tetanus Vaccination: Yes Review of Systems - Review of Systems Constitutional: No symptoms reported. denies: Fever EENT: No symptoms reported Cardiovascular: No symptoms reported. denies: Chest pain Respiratory: No symptoms reported. denies: Cough Gastrointestinal: Abdominal pain, Nausea, Vomiting. denies: Diarrhea Genitourinary: No symptoms reported. denies: Dysuria, Flank pain Female Genitourinary: . denies: Vaginal discharge, Vaginal bleeding Musculoskeletal: No symptoms reported. denies: Back pain Skin: No symptoms reported Hematologic/Lymphatic: No symptoms reported Neurological/Psychological: No symptoms reported Physical Exam - Vital signs Vitals: Temp Pulse Resp BP Pulse Ox 97.8 F 83 16 138/64 H 100 06/23/18 10:55 06/23/18 10:55 06/23/18 10:55 06/23/18 10:55 06/23/18 10:55 - General General appearance: Appears well, Alert In distress: None - HEENT Head: Normocephalic, Atraumatic Eyes: Normal Conjunctiva: Normal Nasal: Normal Mouth/Lips: Normal Mucous membranes: Normal Neck: Normal, Supple. No: Lymphadenopathy - Respiratory Respiratory status: No respiratory distress Chest status: Nontender Breath sounds: Normal. No: Rales, Rhonchi, Stridor, Wheezing Chest palpation: Normal - Cardiovascular Rhythm: Regular Heart sounds: S1 appreciated, S2 appreciated Murmur: No - Abdominal Inspection: Normal Distension: No distension Bowel sounds: Normal Tenderness: Tender - lower pelvic Organomegaly: No organomegaly - Back Back: Normal, Nontender. No: CVA tenderness, Vertebra tenderness - Extremities General upper extremity: Normal inspection, Normal ROM General lower extremity: Normal inspection, Normal ROM - Neurological Neuro grossly intact: Yes Cognition: Normal [place] Coma Scale Eye Opening: Spontaneous [place] Coma Scale Verbal: Oriented [place] Coma Scale Motor: Obeys Commands Carm[place] Coma Scale Total: 15 - Psychological Associated symptoms: Normal affect, Normal mood - Skin Skin Temperature: Warm Skin Moisture: Dry Skin Color: Normal Course - Re-evaluation Re-evalutation: 06/23/18 17:30 Provider realized that a non-OB ultrasound had been ordered, spoke with radiologist Dr. Lind regarding patient's ultrasound report positive test. Discussed her quantitative hCG. No intrauterine or extrauterine noted, although quantitative hCG test is only 337. Agrees with plan to give patient ectopic return precautions. - Vital Signs Vital signs: Temp Pulse Resp BP Pulse Ox 98.9 F 73 16 126/68 H 100 06/23/18 17:56 06/23/18 17:56 06/23/18 17:56 06/23/18 17:56 06/23/18 17:56 - Laboratory Result Diagrams: 06/23/18 11:48 06/23/18 11:48 Laboratory results interpreted by me: 06/23/18 06/23/18 11:48 11:48 Hgb 10.2 L Hct 32.8 L MCV 70 L MCH 21.7 L MCHC 31.2 L RDW 21.0 H Beta HCG, Quant 337.75 H 06/23/18 17:35 Labs- Entire Visit 06/23/18 06/23/18 06/23/18 11:27 11:48 11:48 WBC 7.2 RBC 4.72 Hgb 10.2 L Hct 32.8 L MCV 70 L MCH 21.7 L MCHC 31.2 L RDW 21.0 H Plt Count 440 Seg Neutrophils % 62.0 Lymphocytes % 23.0 Monocytes % 11.7 Eosinophils % 2.5 Basophils % 0.8 Absolute Neutrophils 4.5 Absolute Lymphocytes 1.7 Absolute Monocytes 0.8 Absolute Eosinophils 0.2 Absolute Basophils 0.1 Sodium 141.9 Potassium 3.9 Chloride 106 Carbon Dioxide 26 Anion Gap 10 BUN 8 Creatinine 0.73 Est GFR ( Amer) > 60 Est GFR (Non-Af Amer) > 60 Glucose 95 Calcium 9.4 Total Bilirubin 0.3 Direct Bilirubin 0.1 Neonat Total Bilirubin Not Reportable Neonat Direct Bilirubin Not Reportable Neonat Indirect Bili Not Reportable AST 17 ALT 18 Alkaline Phosphatase 73 Total Protein 8.0 Albumin 4.0 Lipase 55.5 Beta HCG, Quant 337.75 H Total Beta HCG POSITIVE Urine Color YELLOW Urine Appearance SLIGHTLY-CLOUDY Urine pH 6.0 Ur Specific [place] 1.017 Urine Protein NEGATIVE Urine Glucose (UA) NEGATIVE Urine Ketones NEGATIVE Urine Blood NEGATIVE Urine Nitrite NEGATIVE Urine Bilirubin NEGATIVE Urine Urobilinogen NEGATIVE Ur Leukocyte Esterase NEGATIVE Urine WBC (Auto) 0 Urine RBC (Auto) 0 Squamous Epi Cells Auto 1 Urine Mucus (Auto) MOD Urine Ascorbic Acid NEGATIVE Blood Type Rhogam Indicated 06/23/18 15:44 WBC RBC Hgb Hct MCV MCH MCHC RDW Plt Count Seg Neutrophils % Lymphocytes % Monocytes % Eosinophils % Basophils % Absolute Neutrophils Absolute Lymphocytes Absolute Monocytes Absolute Eosinophils Absolute Basophils Sodium Potassium Chloride Carbon Dioxide Anion Gap BUN Creatinine Est GFR ( Amer) Est GFR (Non-Af Amer) Glucose Calcium Total Bilirubin Direct Bilirubin Neonat Total Bilirubin Neonat Direct Bilirubin Neonat Indirect Bili AST ALT Alkaline Phosphatase Total Protein Albumin Lipase Beta HCG, Quant Total Beta HCG Urine Color Urine Appearance Urine pH Ur Specific [place] Urine Protein Urine Glucose (UA) Urine Ketones Urine Blood Urine Nitrite Urine Bilirubin Urine Urobilinogen Ur Leukocyte Esterase Urine WBC (Auto) Urine RBC (Auto) Squamous Epi Cells Auto Urine Mucus (Auto) Urine Ascorbic Acid Blood Type O POSITIVE Rhogam Indicated RHOGAM NOT INDICATED - Diagnostic Test Radiology reviewed: Reports reviewed Discharge - Discharge Clinical Impression: test positive Nausea & vomiting Qualifiers: Vomiting type: unspecified Vomiting Intractability: non-intractable Qualified Code(s): R11.2 - Nausea with vomiting, unspecified Abdominal pain Qualifiers: Abdominal location: unspecified location Qualified Code(s): R10.9 - Unspecified abdominal pain Condition: Stable Disposition: HOME, SELF-CARE Instructions: Abdominal Pain ([facility]), Nausea or Vomiting, Nonspecific ([facility]), ([facility]) Additional Instructions: Return immediately for any new or worsening symptoms Followup with your primary care provider, call tomorrow to make a followup appointment Follow-up with an [facility] provider to establish care. Return in 2 days for a repeat blood test You will need to have a repeat ultrasound to further evaluate your status as there was no noted fetus on ultrasound Prescriptions: Metoclopramide HCl [Reglan 10 mg Tablet] 10 mg PO TID PRN #12 tablet PRN Reason: Forms: Follow-Up Laboratory Testing Referrals: [facility] [Provider Group] - Follow up tomorrow
--- NOTE | 2018-06-23 17:24 | RADIOLOGY REPORT (SQ) ---
EXAM DESCRIPTION: U/S NON OB PEL TV W/DOPPLER COMPLETED DATE/TIME: 06/23/2018 4:32 pm REASON FOR STUDY: pelvic pain COMPARISON: 04/08/2016. TECHNIQUE: Dynamic and static grayscale images acquired of the pelvis via transvaginal approach and recorded on PACS. Additional selected color Doppler and spectral images recorded. LIMITATIONS: None. FINDINGS: UTERUS: Contour normal. No mass. ENDOMETRIAL STRIPE: No focal or generalized thickening. No masses. CERVIX: No nabothian cysts. RIGHT OVARY AND DOPPLER: Normal size. No worrisome masses. Normal arterial vascular flow without evid ence for torsion. LEFT OVARY AND DOPPLER: Normal size. No worrisome masses. Normal arterial vascular flow without evide nce for torsion. FREE FLUID: Free fluid in the posterior cul-de-sac. OTHER: No other significant finding. MEASUREMENTS: UTERUS: Or 0.0 x 4.8 x 9.4 cm. ENDOMETRIAL STRIPE: 9 mm. RIGHT OVARY: 2.2 x 2.4 x 4.0 cm. LEFT OVARY: 2.4 x 2.6 x 2.8 cm. IMPRESSION: FREE FLUID IN THE POSTERIOR CUL-DE-SAC, POSSIBLY PHYSIOLOGIC. OTHERWISE UNREMARKABLE TR ANSVAGINAL PELVIC ULTRASOUND. TECHNICAL DOCUMENTATION: JOB ID: [id number] [employer] All Rights Reserved Rev-01/04 Reading location - IP/workstation name: [email or web address]
[2018-06-23 18:00] VITALS: BP 126/68
[2018-06-23 19:26] LABS: CHLAM PCR NOT DETECTED (NOT DETECT); GON PCR NOT DETECTED (NOT DETECT)
== END 2018-06-23 17:57 | disposition home or self-care (01) ==
LOC: ER 10:42
DX: R10.9 Unspecified abdominal pain (principal); R11.2 Nausea with vomiting, unspecified; R35.0 Frequency of micturition; Z32.01 Encounter for pregnancy test, result positive
CPT/HCPCS: 99284; 96361; 96374; 96375; 86900; 86901; 36415; 84702; 83690; 85025; 80053; 81001; 87491; 87591; 76830; 93976; J1200; J2765; J2405; J7030

== ENCOUNTER → 2018-06-25 | Outpatient (CLI) | payer OTHER | LOC: LAB 12:05 | PROVIDERS: ATTEND Nurse Practitioner Family | DX: R10.2 Pelvic and perineal pain (principal); Z32.01 Encounter for pregnancy test, result positive | CPT/HCPCS: 36415; 84702 ==

== ENCOUNTER 2018-06-27 14:55 | Emergency (ER) | payer OTHER ==
[2018-06-27] MEDS ORDERED: ONDANSETRON HCL INJ/PF 4 MG/2 ML SDV IV ONE (16:07)
[2018-06-27] MEDS ORDERED: NORMAL SALINE 1000 ML 1,000 ML IV ONE (16:08)
--- NOTE | 2018-06-27 16:08 | ER Document Report ---
ED Medical Screen (RME) - General Chief Complaint: Nausea/Vomiting Stated Complaint: VOMITING Time Seen by Provider: 06/27/18 16:03 Notes: 23 years old female about 7 weeks, presents today with nausea vomiting and loose stools. With occasional abdominal cramp. TRAVEL OUTSIDE OF THE [place] IN LAST 30 DAYS: No - Related Data Allergies/Adverse Reactions: No Known Allergies Allergy (Verified 06/27/18 14:57) Past Medical History - Social History Chew tobacco use (# tins/day): No Frequency of alcohol use: None Drug Abuse: None Pulmonary Medical History: Reports: Hx Bronchitis Renal/ Medical History: Denies: Hx Peritoneal Dialysis Psychiatric Medical History: Reports: Hx Depression Past Surgical History: Reports: Hx Appendectomy - Immunizations Hx Diphtheria, Pertussis, Tetanus Vaccination: Yes Physical Exam - Vital signs Vitals: Temp Pulse Resp BP Pulse Ox 98.4 F 90 14 132/71 H 98 06/27/18 14:59 06/27/18 14:59 06/27/18 14:59 06/27/18 14:59 06/27/18 14:59 Course - Vital Signs Vital signs: Temp Pulse Resp BP Pulse Ox 98.4 F 90 14 132/71 H 98 06/27/18 14:59 06/27/18 14:59 06/27/18 14:59 06/27/18 14:59 06/27/18 14:59
[2018-06-27 17:16] LABS: ABSOLUTE EOSINOPHILS # (AUTO) 0.1 10^3/uL (0.0-0.6); ABSOLUTE MONOCYTES (AUTO) 0.8 10^3/uL (0.1-1.4); ABSOLUTE NEUT (AUTO) 4.6 10^3/uL (1.7-8.2); BASOPHILS % (AUTO) 0.6 % (0-2); EOSINOPHILS % (AUTO) 1.7 % (0-6); HEMATOCRIT 31.8 % (36.0-47.0); HEMOGLOBIN 10.2 g/dL (12.0-15.5); LYMPHOCYTES % (AUTO) 26.9 % (13-45); MEAN CORPUSCULAR HEMOGLOBIN 22.3 pg (27.0-33.4); MEAN CORPUSCULAR HGB CONC 31.9 g/dL (32.0-36.0); MEAN CORPUSCULAR VOLUME 70 fl (80-97); MONOCYTES % (AUTO) 10.5 % (3-13); PLATELET COUNT 393 10^3/uL (150-450); RED BLOOD COUNT 4.55 10^6/uL (3.72-5.28); RED CELL DISTRIBUTION WIDTH 21.4 % (11.5-14.0); SEGMENTED NEUTROPHILS % (AUTO) 60.3 % (42-78); TOTAL CELLS COUNTED % (AUTO) 100 %; WHITE BLOOD COUNT 7.6 10^3/uL (4.0-10.5)
--- NOTE | 2018-06-27 19:15 | ER Document Report ---
ED General - General Mode of Arrival: Ambulatory Information source: Patient TRAVEL OUTSIDE OF THE [place] IN LAST 30 DAYS: No <KATHY NATH - Last Filed: 06/27/18 19:41> <JONATHAN ONEILL - Last Filed: 06/27/18 22:27> - General Chief Complaint: Nausea/Vomiting Stated Complaint: VOMITING Time Seen by Provider: 06/27/18 16:03 Notes: Patient is a 23-year-old female currently presents to the emergency department complaining of nausea, vomiting and lower abdominal cramps onset today. Patient states her abdominal cramps as feeling similar to menstrual cramps and states she has been unable to hold any food or liquids down. She denies any vaginal discharge, hematuria, vaginal bleeding, fevers or diarrhea. Patient states she is unsure how far along she is or when her last menstrual period was further stating she does not believe she had a period for the month of May. She states her was confirmed on 06/23/2018 via blood test. She is currently G1. (KATHY NATH) - Related Data Allergies/Adverse Reactions: No Known Allergies Allergy (Verified 06/27/18 14:57) Past Medical History - General Information source: Patient - Social History Smoking Status: Never Smoker Chew tobacco use (# tins/day): No Frequency of alcohol use: None Drug Abuse: None Family History: Reviewed & Not Pertinent Patient has suicidal ideation: No Patient has homicidal ideation: No Pulmonary Medical History: Reports: Hx Bronchitis Psychiatric Medical History: Reports: Hx Depression Past Surgical History: Reports: Hx Appendectomy - Immunizations Hx Diphtheria, Pertussis, Tetanus Vaccination: Yes <KATHY NATH - Last Filed: 06/27/18 19:41> Review of Systems - Review of Systems Constitutional: No symptoms reported EENT: No symptoms reported Cardiovascular: No symptoms reported Respiratory: No symptoms reported Gastrointestinal: See HPI, Abdominal pain, Nausea, Vomiting Genitourinary: No symptoms reported Female Genitourinary: No symptoms reported Musculoskeletal: No symptoms reported Skin: No symptoms reported Hematologic/Lymphatic: No symptoms reported Neurological/Psychological: No symptoms reported -: Yes All other systems reviewed and negative <KATHY NATH - Last Filed: 06/27/18 19:41> Physical Exam <KATHY NATH - Last Filed: 06/27/18 19:41> <JONATHAN ONEILL - Last Filed: 06/27/18 22:27> - Vital signs Vitals: Temp Pulse Resp BP Pulse Ox 98.4 F 90 14 132/71 H 98 06/27/18 14:59 06/27/18 14:59 06/27/18 14:59 06/27/18 14:59 06/27/18 14:59 - Notes Notes: GENERAL: Alert, interacts well. No acute distress. HEAD: Normocephalic, atraumatic. EYES: Pupils equal, round, and reactive to light. Extraocular movements intact. ENT: Oral mucosa moist, tongue midline. NECK: Full range of motion. Supple. Trachea midline. LUNGS: Clear to auscultation bilaterally, no wheezes, rales, or rhonchi. No respiratory distress. HEART: Regular rate and rhythm. No murmurs, gallops, or rubs. ABDOMEN: Soft, tender to palpation slightly to the right of the periumbilical region. Non-distended. Bowel sounds present in all 4 quadrants. EXTREMITIES: Moves all 4 extremities spontaneously. NEUROLOGICAL: Alert and oriented x3. Normal speech. PSYCH: Normal affect, normal mood. SKIN: Warm, dry, normal turgor. No rashes or lesions noted. (KATHY NATH) Course - Laboratory Result Diagrams: 06/27/18 16:58 <KATHY NATH - Last Filed: 06/27/18 19:41> - Laboratory Result Diagrams: 06/27/18 16:58 <JONATHAN ONEILL - Last Filed: 06/27/18 22:27> - Re-evaluation Re-evalutation: 06/27/18 21:09 CBC shows mild anemia with hemoglobin 10.2, quantitative beta hCG continues to rise appropriately with a level of 2676.5, transvaginal ultrasound despite the hCG being above the discriminatory zone says no intrauterine gestation is identified at this time, follow clinically as indicated, there is no adnexal free fluid, there are normal ovaries with normal vascular flow on both sides and there is a small amount of free fluid. Patient's abdomen is some benign, she is not hypotensive or tachycardic, the amount of fluid seen on ultrasound between the fourth and today has not increased. I do not see any evidence currently of a ruptured ectopic however I am very concerned for an ectopic . I did discuss this patient with Dr. Quintero on the phone and he agrees that the patient needs close follow-up, he asks for the patient to come to their office tomorrow. Patient has been instructed to call the office tomorrow morning, return here for increasing pain, any dizziness or any new or concerning symptoms. Of note patient's vomiting has stopped and she has been able to eat without difficulty. 06/27/18 21:11 (JONATHAN ONEILL) - Vital Signs Vital signs: Temp Pulse Resp BP Pulse Ox 98.7 F 76 17 112/60 100 06/27/18 21:43 06/27/18 21:43 06/27/18 21:43 06/27/18 21:43 06/27/18 21:43 - Laboratory Laboratory results interpreted by me: 06/27/18 06/27/18 16:58 16:58 Hgb 10.2 L Hct 31.8 L MCV 70 L MCH 22.3 L MCHC 31.9 L RDW 21.4 H Beta HCG, Quant 2676.50 H Discharge <KATHY NATH - Last Filed: 06/27/18 19:41> <JONATHAN ONEILL - Last Filed: 06/27/18 22:27> - Discharge Clinical Impression: First trimester , Possible ectopic , Nausea/vomiting in Condition: Stable Disposition: HOME, SELF-CARE Additional Instructions: On the fourth your quantitative beta-hCG was 337.75, on the sixth it was 1065.1 , on the eighth it was 2676.5. We could not find a intrauterine on your ultrasound. I am very concerned that she may have an ectopic (out of place or tubal). I have spoken with Dr. Quintero, the [facility] on-call [facility]. He would like you to come to his office tomorrow. Please call the office first thing tomorrow morning to arrange an appointment. This is a follow -up from the emergency department. They will see you tomorrow. We are concerned about an ectopic . Please return to the emergency department immediately for significantly increased pain, vaginal bleeding, passing out or any new or concerning symptoms. Forms: Parent Work Note, Return to Work Referrals: MONTERO,NUPUR, MD [Primary Care Provider] - Follow up as needed BRITTANI QUINTERO MD [ACTIVE STAFF] - Follow up tomorrow Scribe Attestation: 06/27/18 22:27 I personally performed the services described in the documentation, reviewed and edited the documentation which was dictated to the scribe in my presence, and it accurately records my words and actions. (JONATHAN ONEILL) Scribe Documentation - Scribe Written by Meagan:: Meagan Jenkins, 06/27/2018 19:31 acting as scribe for :: Avery <KATHY NATH - Last Filed: 06/27/18 19:41>
--- NOTE | 2018-06-27 20:29 | RADIOLOGY REPORT (SQ) ---
EXAM DESCRIPTION: U/S OB TRANSVAG W/DOPPLER COMPLETED DATE/TIME: 06/27/2018 8:01 pm REASON FOR STUDY: low abd pain, , 1st trimester COMPARISON: None. TECHNIQUE: Transvaginal static and realtime grayscale images acquired of the pelvis. Additional vicki cted spectral and color Doppler images recorded. All images stored on PACs. [id number] CLINICAL DATES: LMP 05/22/2018. 5 weeks 1 day. LIMITATIONS: None. FINDINGS: No intrauterine gestational sac is identified. UTERUS: No masses or anomalies. 9.4 x 4.1 x 5.3 cm. CERVICAL LENGTH: Not applicable. Less than 6 weeks. Closed. RIGHT ADNEXA: Normal ovary with normal vascular flow 4.8 x 2.7 x 2.3 cm. No adnexal free fluid. No adnexal masses. LEFT ADNEXA: Normal ovary with normal vascular flow. 2.2 x 1.9 x 1.8 cm. No adnexal free fluid. No adnexal masses. FREE FLUID: There is a small amount of free fluid. OTHER: No other significant finding. IMPRESSION: No intrauterine gestation is identified at this time. Follow-up as clinically indicated . TECHNICAL DOCUMENTATION: JOB ID: [id number] [employer]- All Rights Reserved rev Reading location - IP/workstation name: [email or web address]
[2018-06-27 21:44] VITALS: BP 112/60
== END 2018-06-27 21:44 | disposition home or self-care (01) ==
LOC: ER 14:55
DX: O21.9 Vomiting of pregnancy, unspecified (principal); R10.30 Lower abdominal pain, unspecified
CPT/HCPCS: 99284; 96361; 96374; 36415; 84702; 85025; 76817; 93976; J2405; J7030

== ENCOUNTER 2019-06-20 11:58 | Emergency (ER) | payer OTHER ==
--- NOTE | 2019-06-20 12:38 | ER Document Report ---
ED Medical Screen (RME) - General Chief Complaint: Vomiting Stated Complaint: VOMITING Time Seen by Provider: 06/20/19 12:34 Primary Care Provider: NUPUR MONTERO MD [Primary Care Provider] - Follow up as needed Mode of Arrival: Ambulatory Information source: Patient Notes: 24-year-old female presented to ED for abdominal generalized cramping nausea and vomiting for the last 2 days. She states her last menstrual cycle was May 22, 2019. She is also having frequency and pressure with urination. She denies any vaginal discharge or bleeding. She states she does not smoke she does drink weekly no illicit drugs. She states her pain is a cramping and a 3/5. I have greeted and performed a rapid initial assessment of this patient. A comprehensive ED assessment and evaluation of the patient, analysis of test results and completion of medical decision making process will be conducted by an additional ED providers. TRAVEL OUTSIDE OF THE [place] IN LAST 30 DAYS: No - Related Data Allergies/Adverse Reactions: No Known Allergies Allergy (Verified 06/27/18 14:57) Past Medical History Pulmonary Medical History: Reports: Hx Bronchitis Renal/ Medical History: Denies: Hx Peritoneal Dialysis Psychiatric Medical History: Reports: Hx Depression Past Surgical History: Reports: Hx Appendectomy - Immunizations Hx Diphtheria, Pertussis, Tetanus Vaccination: Yes Physical Exam - Vital signs Vitals: Temp Pulse Resp BP Pulse Ox 97.9 F 62 18 138/72 H 100 06/20/19 12:02 06/20/19 12:02 06/20/19 12:02 06/20/19 12:02 06/20/19 12:02 Course - Vital Signs Vital signs: Temp Pulse Resp BP Pulse Ox 97.9 F 62 18 138/72 H 100 06/20/19 12:02 06/20/19 12:02 06/20/19 12:02 06/20/19 12:02 06/20/19 12:02 Doctor's Discharge - Discharge Referrals: NUPUR MONTERO MD [Primary Care Provider] - Follow up as needed
[2019-06-20 13:28] LABS: ABSOLUTE EOSINOPHILS # (AUTO) 0.1 10^3/uL (0.0-0.6); ABSOLUTE LYMPHOCYTES (AUTO) 2.1 10^3/uL (0.5-4.7); ABSOLUTE MONOCYTES (AUTO) 0.5 10^3/uL (0.1-1.4); ABSOLUTE NEUT (AUTO) 3.3 10^3/uL (1.7-8.2); BASOPHILS % (AUTO) 0.8 % (0-2); EOSINOPHILS % (AUTO) 1.7 % (0-6); HEMATOCRIT 39.2 % (36.0-47.0); HEMOGLOBIN 12.9 g/dL (12.0-15.5); LYMPHOCYTES % (AUTO) 34.6 % (13-45); MEAN CORPUSCULAR HEMOGLOBIN 27.1 pg (27.0-33.4); MEAN CORPUSCULAR HGB CONC 32.9 g/dL (32.0-36.0); MEAN CORPUSCULAR VOLUME 83 fl (80-97); MONOCYTES % (AUTO) 8.2 % (3-13); PLATELET COUNT 294 10^3/uL (150-450); RED BLOOD COUNT 4.75 10^6/uL (3.72-5.28); SEGMENTED NEUTROPHILS % (AUTO) 54.7 % (42-78); TOTAL CELLS COUNTED % (AUTO) 100 %
[2019-06-20 13:31] LABS: APPEARANCE,URINE CLEAR; BILIRUBIN,URINE NEGATIVE (NEGATIVE); COLOR,URINE STRAW; GLUCOSE, URINE NEGATIVE (NEGATIVE); KETONES,URINE NEGATIVE (NEGATIVE); PROTEIN,URINE NEGATIVE (NEGATIVE); URINE SPECIFIC GRAVITY 1.015; UROBILINOGEN,URINE NEGATIVE mg/dL (<2.0)
[2019-06-20 13:56] LABS: ALBUMIN 4.4 g/dL (3.5-5.0); ALKALINE PHOSPHATASE 88 U/L (38-126); ANION GAP 9 (5-19); ASPARTATE AMINO TRANSFERASE 20 U/L (14-36); BILIRUBIN,DIRECT 0.1 mg/dL (0.0-0.4); BILIRUBIN,TOTAL 0.3 mg/dL (0.2-1.3); BLOOD UREA NITROGEN 12 mg/dL (7-20); CALCIUM 9.2 mg/dL (8.4-10.2); CARBON DIOXIDE 23 mmol/L (22-30); CHLORIDE 106 mmol/L (98-107); GLUCOSE 84 mg/dL (75-110); POTASSIUM 4.1 mmol/L (3.6-5.0)
[2019-06-20] MEDS ORDERED: ONDANSETRON 4 MG TAB.RAPDIS PO ONE (14:45)
[2019-06-20] MEDS ORDERED: LIDOCAINE 2% VISCOUS SOLN 20 ML UDCUP PO ONE (14:46)
[2019-06-20] MEDS ORDERED: METOCLOPRAMIDE HCL ORAL SOLN 10 MG/10 ML UDCUP PO ONE (14:46)
[2019-06-20] MEDS ORDERED: MAG HYDROX/AL HYDROX/SIMETH SUSP 30 ML UDCUP PO ONE (14:46)
--- NOTE | 2019-06-20 15:13 | ER Document Report ---
ED GI/ - General Chief Complaint: Vomiting Stated Complaint: VOMITING Time Seen by Provider: 06/20/19 12:34 Primary Care Provider: NUPUR MONTERO MD [ACTIVE STAFF] - Follow up as needed Mode of Arrival: Ambulatory Notes: Ms. Leslie is a 24 yo F w/ no significant PMH sending to the ED for 2 days of nausea and vomiting. Patient denies any known ill contacts, recent travel or new restaurants or new foods. She is 3 months from delivering a healthy baby girl. Delivery was performed via at 40 weeks as the baby was having decelerations with contractions which was found to be later that she had a nuchal cord. Other complications during the or . Child is otherwise well. Mom states she has epigastric tenderness without any diarrhea. She has had somewhere between 10-20 episodes of vomiting over the past 2 days. No diarrhea. She denies any hematemesis or bilious vomiting. She endorses ongoing nausea currently. No fevers or chills, chest pain, cough or difficulty breathing. Last BM was approximately 2 to 3 hours ago and it was normal. Patie nt endorses a mild lightheadedness. She also endorses ongoing vomiting with any food intake. Able to tolerate some water. TRAVEL OUTSIDE OF THE [place] IN LAST 30 DAYS: No - Related Data Allergies/Adverse Reactions: No Known Allergies Allergy (Verified 06/27/18 14:57) Past Medical History - General Information source: Patient - Social History Smoking Status: Never Smoker Chew tobacco use (# tins/day): No Frequency of alcohol use: Social Drug Abuse: None Family History: Reviewed & Not Pertinent Patient has suicidal ideation: No Patient has homicidal ideation: No Pulmonary Medical History: Reports: Hx Bronchitis Renal/ Medical History: Denies: Hx Peritoneal Dialysis Psychiatric Medical History: Reports: Hx Depression Past Surgical History: Reports: Hx Appendectomy, Hx Section - Immunizations Hx Diphtheria, Pertussis, Tetanus Vaccination: Yes Review of Systems - Review of Systems Constitutional: See HPI EENT: No symptoms reported Cardiovascular: No symptoms reported Respiratory: No symptoms reported Gastrointestinal: See HPI, Nausea, Vomiting, Poor appetite, Poor fluid intake Genitourinary: No symptoms reported Female Genitourinary: No symptoms reported Musculoskeletal: No symptoms reported Skin: No symptoms reported Hematologic/Lymphatic: No symptoms reported Neurological/Psychological: No symptoms reported Physical Exam - Vital signs Vitals: Temp Pulse Resp BP Pulse Ox 97.9 F 62 18 138/72 H 100 06/20/19 12:02 06/20/19 12:02 06/20/19 12:02 06/20/19 12:02 06/20/19 12:02 Interpretation: Normal - General General appearance: Appears well, Alert - HEENT Head: Normocephalic, Atraumatic Eyes: Normal Pupils: PERRL - Respiratory Respiratory status: No respiratory distress Chest status: Nontender Breath sounds: Normal Chest palpation: Normal - Cardiovascular Rhythm: Regular Heart sounds: Normal auscultation Murmur: No - Abdominal Inspection: Normal Distension: No distension Bowel sounds: Normal Tenderness: Nontender Organomegaly: No organomegaly Notes: No rebound or guarding. - Back Back: Normal, Nontender - Extremities General upper extremity: Normal inspection, Nontender, Normal color, Normal ROM, Normal temperature General lower extremity: Normal inspection, Nontender, Normal color, Normal ROM, Normal temperature, Normal weight bearing. No: Tk's sign - Neurological Neuro grossly intact: Yes Cognition: Normal Orientation: AAOx4 [place] Coma Scale Eye Opening: Spontaneous Carmen Coma Scale Verbal: Oriented [place] Coma Scale Motor: Obeys Commands [place] Coma Scale Total: 15 Speech: Normal Motor strength normal: LUE, RUE, LLE, RLE Sensory: Normal - Psychological Associated symptoms: Normal affect, Normal mood - Skin Skin Temperature: Warm Skin Moisture: Dry Skin Color: Normal Course - Re-evaluation Re-evalutation: Patient is generally well-appearing and nontoxic. Initial vitals within normal limits. Original diagnosis includes gastroenteritis, dehydration, electrolyte abnormality, pancreatitis, obstructive process. 06/20/19 15:32 Presentation of generalized, intermittent abdominal pain. Abdominal exam is benign without any focal tenderness. Vitals are normal at the time of arrival. Laboratories are unremarkable without evidence of cystitis, , or leukocytosis. Patient is overall very well in appearance. Patient given Zofran for nausea and GI cocktail. Based on clinical history and examination I do not suspect an acute appendicitis, tubo-ovarian abscess, related pathology, pelvic inflammatory disease, mesenteric ischemia, or pyelonephritis. Pelvic exam not indicated as the patient is a patient does not have any pelvic complaints, vaginal discharge or spotting. Patient is able to take p.o. although the mucous membranes appear somewhat dry, she is actively drinking water in the ED without any issues. Will discharge home with return precautions and followup recommendations. 06/20/19 15:40 Patient drinking water and eating crackers and feels improved after Zofran and GI cocktail. Patient given return precautions and will be discharged with Zofran ODT and recommendation to eat a bland diet. - Vital Signs Vital signs: Temp Pulse Resp BP Pulse Ox 97.9 F 62 18 138/72 H 100 06/20/19 12:02 06/20/19 12:02 06/20/19 12:02 06/20/19 12:02 06/20/19 12:02 - Laboratory Result Diagrams: 06/20/19 13:13 06/20/19 13:13 Discharge - Discharge Clinical Impression: Gastritis, Nausea and vomiting Condition: Good Disposition: HOME, SELF-CARE Instructions: Antinausea Medication ([facility]), Viral Syndrome ([facility]), Vomiting ([facility]) Prescriptions: Ondansetron [Zofran Odt 4 mg Tablet] 1 - 2 tab PO Q8H PRN #20 tab.rapdis PRN Reason: For Nausea/Vomiting Referrals: NUPUR MONTERO MD [ACTIVE STAFF] - Follow up as needed
[2019-06-20 16:00] VITALS: BP 132/74
== END 2019-06-20 16:04 | disposition home or self-care (01) ==
LOC: ER 11:58
DX: K29.70 Gastritis, unspecified, without bleeding (principal); R11.2 Nausea with vomiting, unspecified; R63.0 Anorexia; R42 Dizziness and giddiness; R10.84 Generalized abdominal pain; Z90.49 Acquired absence of other specified parts of digestive tract
CPT/HCPCS: 99283; 36415; 84702; 83690; 85025; 80053; 81001; S0119; J3490